=== PATIENT | male | born 1960 | race Caucasian/White ===

== ENCOUNTER 2017-07-04 16:37 | Outpatient (CLI) | payer OTHER ==
--- NOTE | 2017-07-04 20:09 | MRI Report ---
EXAM: RIGHT KNEE MRI WITHOUT CONTRAST EXAM DATE: 07/04/2017 05:24 PM. CLINICAL HISTORY: Right knee medial collateral ligament sprain. COMPARISON: 05/26/2017 radiograph, MRI 09/27/2016. TECHNIQUE: Multiplanar, multisequence T1-weighted and fluid-sensitive sequences of the knee without c ontrast. Other: None. FINDINGS: Bones: Mild tricompartmental osteophytes are present. No fractures. No marrow edema. Articular Cartilage: The central patellar cartilage has partial thickness fissuring. The trochlear ca rtilage is mildly thinned with surface irregularity. Lateral compartment articular cartilage is intac t. There is mild thinning and surface irregularity of the medial compartment articular cartilage. Fin dings are similar to the prior examination. Medial Meniscus: The medial meniscus is intact. Lateral Meniscus: The posterior horn of the lateral meniscus has longitudinal tearing and some head counselor ior horizontal tearing, potentially worse than on the prior examination. Cruciate Ligaments: The anterior and posterior cruciate ligaments are intact. Collateral Ligaments: The medial collateral and lateral collateral ligamentous structures are intact. Tendons: The quadriceps, patellar, semimembranosus, and popliteus tendons are unremarkable. Musculature: No edema or fatty atrophy. Other: A mild effusion is present. No popliteal cyst. No loose bodies. The medial and lateral retina cula are intact. Prepatellar subcutaneous edema is seen. IMPRESSION: 1. Mild osteoarthritis. 2. Complex tear of the posterior horn of the lateral meniscus. 3. Mild knee effusion. [facility] MUSCULOSKELETAL RADIOLOGY SECTION Referring Provider Line: [phone] SITE ID: [id number]
== END 2017-07-04 16:38 | disposition home or self-care (01) ==
LOC: DI 16:37
PROVIDERS: ATTEND Physician Assistant Medical
DX: M17.11 Unilateral primary osteoarthritis, right knee (principal); S83.271A Complex tear of lateral meniscus, current injury, right knee, initial encounter; M25.461 Effusion, right knee

== ENCOUNTER 2017-11-04 13:55 | Outpatient (CLI) | payer OTHER ==
[2017-11-04 21:08] LABS: ALBUMIN 3.8 g/dL (3.2-5.5); BILIRUBIN,DIRECT 0.3 mg/dL (0.1-0.5); BILIRUBIN,TOTAL 0.6 mg/dL (0.2-1.0); TOTAL PROTEIN 7.6 g/dL (6.7-8.2)
== END 2017-11-04 13:56 | disposition home or self-care (01) ==
LOC: LAB.WCP 13:55
PROVIDERS: ATTEND Orthopaedic Surgery
DX: S83.231A Complex tear of medial meniscus, current injury, right knee, initial encounter (principal); Z96.652 Presence of left artificial knee joint
CPT/HCPCS: 36415; 80076

== ENCOUNTER 2018-10-20 11:29 | Outpatient (CLI) | payer OTHER ==
[2018-10-20 18:56] LABS: BASOPHILS % (AUTO) 0.7 %; EOSINOPHILS % (AUTO) 8.3 %; HGB - HEMOGLOBIN 14.8 g/dL (14.0-18.0); LYMPHOCYTES % (AUTO) 34.5 %; MEAN CORPUSCULAR HEMOGLOBIN 33.6 pg (27.0-31.0); MEAN CORPUSCULAR HGB CONC 33.1 g/dL (32.0-36.0); MEAN CORPUSCULAR VOLUME 101.4 fL (80.0-94.0); MEAN PLATELET VOLUME 10.3 fL (7.4-11.4); MONOCYTES % (AUTO) 13.8 %; NEUTROPHILS % (AUTO) 42.7 %; PLT - PLATELET COUNT 111 10^3/uL (130-450); RED CELL DISTRIBUTION WIDTH 15.2 % (12.0-15.0); WHITE BLOOD COUNT 5.4 x10^3/uL (4.8-10.8)
[2018-10-20 19:02] LABS: ABNORMAL LYMPHS % (MANUAL) 0 %
[2018-10-20 19:31] LABS: BAND NEUTROPHILS % (MANUAL) 6 %; EOSINOPHILS # (MANUAL) 0.8 10^3/uL (0-0.7); LYMPHOCYTES # (MANUAL) 1.6 10^3/uL (1.5-3.5); LYMPHOCYTES % (MANUAL) 29 %; MONOCYTES # (MANUAL) 0.6 10^3/uL (0.0-1.0); NEUTROPHILS # (MANUAL) 2.5 10^3/uL (1.5-6.6); NEUTROPHILS % (MANUAL) 40 %
[2018-10-20 19:32] LABS: DIFFERENTIAL COMMENT MANUAL DIFFERENTIAL; PLATELET ESTIMATE, MANUAL DECREASED (<130,000) (NORMAL); PLATELET MORPHOLOGY NORMAL APPEARANCE (NORMAL)
[2018-10-20 19:42] LABS: ALBUMIN 3.2 g/dL (3.2-5.5); ALBUMIN/GLOBULIN RATIO 0.7 (1.0-2.2); ALKALINE PHOSPHATASE 263 IU/L (42-121); ALT ALANINE AMINOTRANSFERASE 142 IU/L (10-60); AST ASPARTATE AMINOTRANSFERASE 233 IU/L (10-42); BILIRUBIN,TOTAL 2.5 mg/dL (0.2-1.0); BUN - BLOOD UREA NITROGEN 9 mg/dL (6-20); CALCIUM 8.8 mg/dL (8.5-10.3); CARBON DIOXIDE - CO2 29 mmol/L (21-32); CHLORIDE 100 mmol/L (101-111); CHOL/HDL RATIO 4.1 (<5.0); CHOLESTEROL 107 mg/dL; CREATININE 0.6 mg/dL (0.6-1.2); GFR - MDRD 139 (>89); GLUCOSE 169 mg/dL (70-100); HDL CHOLESTEROL 26 mg/dL; LDL CHOLESTEROL,CALCULATED 63 mg/dL; LDL/HDL RATIO 2.4 (<3.6); SODIUM 135 mmol/L (135-145); TOTAL PROTEIN 7.5 g/dL (6.7-8.2); VLDL CHOLESTEROL 18 mg/dL
== END 2018-10-20 23:59 | disposition home or self-care (01) ==
LOC: LAB.WCP 11:29
PROVIDERS: ATTEND Physician Assistant Medical
DX: I10 Essential (primary) hypertension (principal); Z79.899 Other long term (current) drug therapy; Z12.5 Encounter for screening for malignant neoplasm of prostate
CPT/HCPCS: 36415; 80053; 80061; 83721; 84153; 85025

== ENCOUNTER 2018-10-23 14:29 | Outpatient (CLI) | payer OTHER | END 2018-10-23 23:59 | disposition home or self-care (01) | LOC: LAB.R 14:29 | PROVIDERS: ATTEND Physician Assistant Medical | DX: Z53.9 Procedure and treatment not carried out, unspecified reason (principal) | CPT/HCPCS: 83036 ==

== ENCOUNTER 2018-11-08 09:18 | Outpatient (CLI) | payer MEDICARE ==
--- NOTE | 2018-11-08 14:11 | Ultrasound Report ---
Reason: HEPATITIS C Procedure Date: 11/08/2018 Accession Number: [id number] / [id number] Procedure: US - Abdomen Limited CPT Code: FULL RESULT: EXAM: ABDOMEN ULTRASOUND LIMITED, RUQ EXAM DATE: 11/08/2018 10:34 AM. CLINICAL HISTORY: Hepatitis C. COMPARISON: None. TECHNIQUE: Real-time scanning was performed with static images obtained. FINDINGS: Liver: Normal in size with mildly coarsened but otherwise preserved echotexture. Right lobe of the liver measures at least 18.5 cm. Main portal vein flow: Hepatopetal. Gallbladder: Cholelithiasis is noted, stones are mobile and there is no wall thickening, pericholecystic fluid or detectable sonographic Montilla's sign. Biliary System: CBD measures 4 mm. No intrahepatic or extrahepatic ductal dilatation. Other: Right kidney measures 12 cm in maximal sagittal dimension and demonstrates no gross calculi, mass or hydronephrosis. IMPRESSION: Cholelithiasis without cholecystitis. [facility]
== END 2018-11-08 09:19 | disposition home or self-care (01) ==
LOC: DI 09:18
PROVIDERS: ATTEND Physician Assistant Medical
DX: K80.20 Calculus of gallbladder without cholecystitis without obstruction (principal); B19.20 Unspecified viral hepatitis C without hepatic coma
CPT/HCPCS: 76705

== ENCOUNTER 2019-03-09 15:11 | Outpatient (CLI) | payer MEDICARE ==
[2019-03-09 15:30] LABS: BASOPHILS # (AUTO) 0.1 10^3/uL (0.0-0.1); BASOPHILS % (AUTO) 1.1 %; EOSINOPHILS # (AUTO) 0.4 10^3/uL (0.0-0.7); HGB - HEMOGLOBIN 13.9 g/dL (14.0-18.0); LYMPHOCYTES # (AUTO) 1.6 10^3/uL (1.5-3.5); LYMPHOCYTES % (AUTO) 27.2 %; MEAN CORPUSCULAR HEMOGLOBIN 33.7 pg (27.0-31.0); MEAN CORPUSCULAR HGB CONC 34.3 g/dL (32.0-36.0); MEAN CORPUSCULAR VOLUME 98.3 fL (80.0-94.0); MEAN PLATELET VOLUME 8.8 fL (7.4-11.4); MONOCYTES # (AUTO) 0.7 10^3/uL (0.0-1.0); MONOCYTES % (AUTO) 11.1 %; NEUTROPHILS # (AUTO) 3.2 10^3/uL (1.5-6.6); NEUTROPHILS % (AUTO) 53.6 %; PLT - PLATELET COUNT 103 10^3/uL (130-450); RED BLOOD COUNT 4.13 10^6/uL (4.70-6.10); RED CELL DISTRIBUTION WIDTH 14.5 % (12.0-15.0)
[2019-03-09 15:40] LABS: ALBUMIN 3.3 g/dL (3.2-5.5); ALBUMIN/GLOBULIN RATIO 0.8 (1.0-2.2); BILIRUBIN,TOTAL 1.8 mg/dL (0.2-1.0); CALCIUM 8.6 mg/dL (8.5-10.3); CREATININE 0.7 mg/dL (0.6-1.2); TOTAL PROTEIN 7.7 g/dL (6.7-8.2)
[2019-03-13 15:47] LABS: HCV RNA QNT <1.18 NOT DETECTED Log IU/mL (NOT DETECTED); HCV RNA QUANT RT PCR <15 NOT DETECTED IU/mL (NOT DETECTED)
== END 2019-03-09 15:12 | disposition home or self-care (01) ==
LOC: LAB 15:11
PROVIDERS: ATTEND Internal Medicine Gastroenterology
DX: B18.2 Chronic viral hepatitis C (principal)
CPT/HCPCS: 36415; 80053; 81599; 85025; 87522

== ENCOUNTER 2019-03-19 09:00 | Outpatient (CLI) | payer MEDICARE ==
--- NOTE | 2019-03-19 09:28 | XRAY Report ---
Reason: SPRAIN OF OTHER LIGAMENT OF LEFT ANKLE,INITIAL ENC Procedure Date: 03/19/2019 Accession Number: [id number] / [id number] Procedure: WCP - Ankle 3 View LT CPT Code: FULL RESULT: EXAM: LEFT ANKLE RADIOGRAPHY EXAM DATE: 03/19/2019 09:14 AM. CLINICAL HISTORY: SPRAIN OF OTHER LIGAMENT OF LEFT ANKLE, INITIAL ENCOUNTER. COMPARISON: None. TECHNIQUE: 3 views. FINDINGS: Bones: No acute fracture. Tiny calcaneal bone spur. Joints: Normal. No effusion. No subluxations. The ankle mortise is normally aligned. Soft Tissues: Marked generalized soft tissue swelling. IMPRESSION: Negative for fracture. [facility]
== END 2019-03-19 09:01 | disposition home or self-care (01) ==
LOC: DI.WCP 09:00
PROVIDERS: ATTEND Physician Assistant Medical
DX: S93.492A Sprain of other ligament of left ankle, initial encounter (principal)

== ENCOUNTER 2019-07-14 17:34 | Outpatient (CLI) | payer MEDICARE | END 2019-07-14 17:35 | disposition critical access hospital (66) | LOC: EMS 17:34 | PROVIDERS: ATTEND Surgery | DX: R55 Syncope and collapse (principal); R61 Generalized hyperhidrosis | CPT/HCPCS: A0425; A0429 ==

== ENCOUNTER 2019-07-14 17:50 | Emergency (ER) | payer MEDICARE ==
[2019-07-14 18:21] LABS: BASOPHILS # (AUTO) 0.1 10^3/uL (0.0-0.1); BASOPHILS % (AUTO) 1.4 %; EOSINOPHILS # (AUTO) 1.3 10^3/uL (0.0-0.7); EOSINOPHILS % (AUTO) 13.7 %; HGB - HEMOGLOBIN 13.2 g/dL (14.0-18.0); LYMPHOCYTES % (AUTO) 21.3 %; MEAN CORPUSCULAR HEMOGLOBIN 33.8 pg (27.0-31.0); MEAN CORPUSCULAR HGB CONC 33.8 g/dL (32.0-36.0); MEAN CORPUSCULAR VOLUME 99.7 fL (80.0-94.0); MEAN PLATELET VOLUME 10.2 fL (7.4-11.4); MONOCYTES % (AUTO) 10.4 %; NEUTROPHILS # (AUTO) 4.8 10^3/uL (1.5-6.6); NEUTROPHILS % (AUTO) 51.4 %; PLT - PLATELET COUNT 130 10^3/uL (130-450); RED BLOOD COUNT 3.91 10^6/uL (4.70-6.10); RED CELL DISTRIBUTION WIDTH 14.7 % (12.0-15.0); WHITE BLOOD COUNT 9.4 x10^3/uL (4.8-10.8)
[2019-07-14 18:33] LABS: ALBUMIN 3.7 g/dL (3.2-5.5); ALBUMIN/GLOBULIN RATIO 0.9 (1.0-2.2); BILIRUBIN,TOTAL 1.5 mg/dL (0.2-1.0); CALCIUM 8.9 mg/dL (8.5-10.3); CREATININE 0.9 mg/dL (0.6-1.2); TOTAL PROTEIN 7.8 g/dL (6.7-8.2)
--- NOTE | 2019-07-14 18:43 | ED Physician Documentation ---
History of Present Illness - Stated complaint Stated Complaint: ALOC - Chief complaint Chief Complaint: Neuro - Additonal information Additional information: This is a 59-year-old male with a history of hypertension, hyperlipidemia, treated Hep C and well-controlled type 2 diabetes, who presents after an episode of syncope. Patient drove over to visit his friends at their house this evening. He remembers using his cell phone While waiting in the driveway, and then he woke up with his friend next to him. His friends, who are present at bedside, state that they came out to see him in the driveway and they found him drooling and unresponsive in his car. When they shook him they were able to wake him up after a few seconds, they state that he was sweating profusely. He denied any chest pain, shortness of breath, and after awakening he felt fine. He states this has never happened before. He denies any drug use, no alcohol use today. No fever. He was feeling well prior to this event. Review of Systems Constitutional: denies: Fever Eyes: denies: Loss of vision Nose: denies: Rhinorrhea / runny nose Cardiac: denies: Chest pain / pressure Respiratory: denies: Dyspnea GI: denies: Abdominal Pain : denies: Dysuria Skin: denies: Rash Neurologic: reports: Syncope Psychiatric: denies: Depressed Immunocompromised: denies: Immunocompromised PD PAST MEDICAL HISTORY - Past Medical History Cardiovascular: Hypertension Endocrine/Autoimmune: Type 2 diabetes Psych: Depression, Anxiety Musculoskeletal: Chronic back pain - Past Surgical History Ortho: Knee replacement - Present Medications Home Medications: Ambulatory Orders Medication Instructions Recorded Confirmed Brexpiprazole [Rexulti] 2 mg PO QPM 11/21/18 12/13/18 Cyclobenzaprine [Flexeril] 10 mg PO TID PRN 11/21/18 12/13/18 Doxepin [SINEquan] 75 - 100 mg PO QPM 11/21/18 12/13/18 Duloxetine HCl [Cymbalta] 60 mg PO DAILY 11/21/18 12/13/18 Lisinopril 20 mg PO DAILY 11/21/18 12/13/18 Meloxicam 7.5 mg PO BID 11/21/18 12/13/18 Metoprolol Tartrate 150 mg PO QPM 11/21/18 12/13/18 Mirtazapine [Remeron] 45 mg PO HS 11/21/18 12/13/18 [place]-3S/Dha/Epa/Fish Oil [Fish 2 tab PO DAILY 11/21/18 12/13/18 Oil 1,200 mg Softgel] Tumeric 2,000 mg PO DAILY 11/21/18 12/13/18 hydrOXYzine HCl [Hydroxyzine HCl] 50 - 100 mg PO TID PRN 11/21/18 12/13/18 metFORMIN [Glucophage] 500 mg PO BIDWM 11/21/18 12/13/18 Hydrochlorothiazide 12.5 mg PO 07/14/19 07/14/19 Ledipasvir/Sofosbuvir [Harvoni 1 each PO 07/14/19 90-400 mg Tablet] Methadone 5 mg PO 07/14/19 07/14/19 - Allergies Allergies/Adverse Reactions: Allergies Allergy/AdvReac Type Severity Reaction Status Date / Time No Known Drug Allergies Allergy Verified 07/14/19 18:06 - Living Situation Living Arrangement: reports: At home - Social History Does the pt smoke?: Yes Smoking Status: Current every day smoker Does the pt drink ETOH?: No Does the pt have substance abuse?: No - Immunizations Immunizations are current?: Yes - POLST Patient has POLST: No PD ED PE NORMAL - Vitals Vital signs reviewed: Yes - General General: Alert and oriented X 3, No acute distress - HEENT HEENT: PERRL - Neck Neck: Supple, no meningeal sign - Cardiac Cardiac: RRR, No murmur - Respiratory Respiratory: Clear bilaterally - Abdomen Abdomen: Soft, Non tender, Non distended - Derm Derm: Warm and dry - Extremities Extremities: No deformity - Neuro Neuro: Alert and oriented X 3, shaper hand 2-12 intact, No motor deficit, No sensory deficit, Normal speech - Psych Psych: Normal mood, Normal affect Results - Vitals Vitals: Vital Signs - 24 hr 07/14/19 07/14/19 07/14/19 18:04 18:06 20:13 Temperature 36.7 C 36.6 C Heart Rate 76 65 57 L Respiratory 20 14 Rate Blood Pressure 156/85 H 144/74 H O2 Saturation 95 92 07/14/19 21:54 Temperature Heart Rate 58 L Respiratory 15 Rate Blood Pressure 164/80 H O2 Saturation 97 Oxygen O2 Source Room air - EKG (time done) 18:10 Other comments: Other comments (Rate 68, rhythm sinus, left axis deviation. LVH by voltage criteria.QTC read as prolonged at 517 by the computer, on my calculation it is 468 - 480 .) - Labs Labs: Laboratory Tests 07/14/19 07/14/19 07/14/19 18:15 18:15 18:15 WBC 9.4 RBC 3.91 L Hgb 13.2 L Hct 39.0 L MCV 99.7 H MCH 33.8 H MCHC 33.8 RDW 14.7 Plt Count 130 MPV 10.2 Neut # (Auto) 4.8 Lymph # (Auto) 2.0 [place] # (Auto) 1.0 Eos # (Auto) 1.3 H Baso # (Auto) 0.1 Absolute Nucleated RBC 0.00 Band Neuts % (Manual) Not Reportable Abnorm Lymph % (Manual) Not Reportable Nucleated RBC % 0.0 Neutrophils # (Manual) Not Reportable Lymphocytes # (Manual) Not Reportable Monocytes # (Manual) Not Reportable Eosinophils # (Manual) Not Reportable Basophils # (Manual) Not Reportable Differential Comment MANUAL=AUTO DIFF Manual Slide Review Indicated Platelet Estimate NORMAL (130-450,000) Platelet Morphology NORMAL APPEARANCE RBC Morph Micro Appear 1+ ANISOCYTOSIS Sodium 141 Potassium 3.3 L Chloride 104 Carbon Dioxide 28 Anion Gap 9.0 BUN 7 Creatinine 0.9 Estimated GFR (MDRD) 87 L Glucose 110 H POC Whole Bld Glucose Calcium 8.9 Total Bilirubin 1.5 H AST 40 ALT 25 Alkaline Phosphatase 176 H Troponin I High Sens 7.4 B-Natriuretic Peptide Total Protein 7.8 Albumin 3.7 Globulin 4.1 Albumin/Globulin Ratio 0.9 L Lipase 59 H 07/14/19 07/14/19 18:15 18:18 WBC RBC Hgb Hct MCV MCH MCHC RDW Plt Count MPV Neut # (Auto) Lymph # (Auto) [place] # (Auto) Eos # (Auto) Baso # (Auto) Absolute Nucleated RBC Band Neuts % (Manual) Abnorm Lymph % (Manual) Nucleated RBC % Neutrophils # (Manual) Lymphocytes # (Manual) Monocytes # (Manual) Eosinophils # (Manual) Basophils # (Manual) Differential Comment Manual Slide Review Platelet Estimate Platelet Morphology RBC Morph Micro Appear Sodium Potassium Chloride Carbon Dioxide Anion Gap BUN Creatinine Estimated GFR (MDRD) Glucose POC Whole Bld Glucose 120 H Calcium Total Bilirubin AST ALT Alkaline Phosphatase Troponin I High Sens B-Natriuretic Peptide 98 Total Protein Albumin Globulin Albumin/Globulin Ratio Lipase - Rads (name of study) CXR Radiology: Other (Mild interstitial thickening suggestive of reactive airway disease, otherwise unremarkable) PD MEDICAL DECISION MAKING - ED course Complexity details: considered differential (Dysrhythmia, ACS, drug use, dehydration, electrolyte abnormality, seizure, vasovagal episode) ED course: On my examination patient is well-appearing, is hypertensive, vital signs otherwise unremarkable. He is asymptomatic at this time and has a normal neurologic exam. His EKG shows some signs of left ventricular hypertrophy. The computer read of his EKG is prolonged QTC at 517, my calculation the QTC is 468. CBC shows a mild anemia of 10.2, unlikely to be the cause of his symptoms, othe rwise CBC is unremarkable. CMP shows a mild hypokalemia 3.3, and his alkaline phosphatase is slightly elevated at 176, otherwise his chemistry panel is unrevealing. Troponin is negative. BNP normal. He does not take insulin and was not hypoglycemic. Chest x-ray shows some mild interstitial thickening, no consolidation or other acute cardiopulmonary abnormality. On repeat evaluation patient continues to feel well and is eager to go home. I discussed with him that based on our work-up so far I do not have an obvious cause for his episode of syncope with diaphoresis. Cardiac dysrhythmia is p ossible, he is on mulitple QT prolonging drugs, and I explained to him that I recommend we admit and observe him for signs of dysrhythmia. This would also allow us to perform serial troponins. Patient declines admission and would like to go home. He understands the risk of doing so, including missed diagnosis, potentially leading to serious harm or . He also understands my concern for potential dysrhythmia or other cardiac problem. I discussed that he should follow closely with his primary care provider and/or Farm Mechanic. I also discussed that if he has any recurrent or new symptoms he needs to return to the emergency department. He agrees with this plan. I also discussed low, slow, and dry precautions including no driving cars or climbing at heights. Although patient is feeling quite well, he agrees to at least be watched at his friend's house tonight, since he otherwise lives alone. He was discharged home in their care. Departure - Departure Disposition: 01 Home, Self Care Clinical Impression: Syncope Qualifiers: Syncope type: unspecified Qualified Code(s): R55 - Syncope and collapse Condition: Stable Instructions: ED Fainting Unkn Cause Follow-Up: Your,PCP [Other] - Within 3 Days (Make an appointment as soon as possible for follow-up on your EKG changes and your episode of passing out.) Comments: You were seen today because you were found unconscious, we do not know the cause of this. Your EKG did show some likely enlargement of your heart, and should follow-up closely with your primary care provider or scrap preparation supervisor on this. Abnormal rhythms of your heart can cause episodes like the one you had today, and I would've liked for you to be observed overnight in the hospital. If you develop any chest pain, shortness of breath, feeling of your heart racing and flip-flopping, or more episodes of passing out, return to the emergency department. Do not drive, climb at heights, do anything that could be dangerous if you pass out. Discharge Date/Time: 07/14/19 22:10
[2019-07-14 18:44] LABS: RBC MORPHOLOGY (MULTIPLE) 1+ ANISOCYTOSIS (NORMAL)
[2019-07-14 18:45] LABS: DIFFERENTIAL COMMENT MANUAL=AUTO DIFF; PLATELET ESTIMATE, MANUAL NORMAL (130-450,000) (NORMAL); PLATELET MORPHOLOGY NORMAL APPEARANCE (NORMAL)
--- NOTE | 2019-07-14 20:28 | XRAY Report ---
Reason: cough Procedure Date: 07/14/2019 Accession Number: [id number] / [id number] Procedure: XR - Chest 2 View X-Ray CPT Code: 52223 FULL RESULT: EXAM: CHEST RADIOGRAPHY EXAM DATE: 07/14/2019 08:09 PM. CLINICAL HISTORY: Cough. COMPARISON: None. TECHNIQUE: 2 views. FINDINGS: Lungs/Pleura: Mild bilateral interstitial thickening. No consolidation. No pleural effusion or pneumothorax. Mediastinum: Heart size within normal limits. Mildly tortuous and ectatic aorta. Other: None. IMPRESSION: Mild bilateral interstitial thickening may be related to viral illness and/or reactive airways disease. [facility]
[2019-07-14 21:54] VITALS: BP 164/80
== END 2019-07-14 22:10 | disposition home or self-care (01) ==
LOC: ED 17:50
DX: R55 Syncope and collapse (principal); R74.8 Abnormal levels of other serum enzymes; E87.6 Hypokalemia; D64.9 Anemia, unspecified; I11.9 Hypertensive heart disease without heart failure; E78.5 Hyperlipidemia, unspecified; E11.9 Type 2 diabetes mellitus without complications; Z79.84 Long term (current) use of oral hypoglycemic drugs; F17.200 Nicotine dependence, unspecified, uncomplicated
CPT/HCPCS: 36415; 71046; 80053; 83690; 83880; 84484; 85025; 93005; 99283; 99284

== ENCOUNTER 2020-04-14 15:19 | Outpatient (CLI) | payer OTHER, MEDICARE ==
--- NOTE | 2020-04-14 16:56 | MRI Report ---
PROCEDURE: Ankle LT W/O INDICATIONS: LT ANKLE SPRAIN, FOOT PAIN TECHNIQUE: Noncontrast sagittal T1 spin echo and T2 fast spin echo with fat saturation, axial proton density fas t spin echo and T2 fast spin echo with fat saturation, coronal T1 spin echo and T2 fast spin echo wit h fat saturation through the ankle/hindfoot. COMPARISON: None. FINDINGS: Image quality: Excellent. Bones and joints: No bone marrow contusions or fractures. There is mild degenerative marrow edema in volving the posterolateral aspect of the talus, consistent with degenerative marrow edema. No hindfoo t coalitions. No osteochondral injuries of the talar dome. No pathologic joint effusions. Medial structures: There is a small focus of high T2 signal intensity within the tibialis posterior tendon just proximal to the medial malleolus and at the level of the medial malleolus, indicating a l ow-grade partial-thickness tear. The flexor digitorum longus, and flexor hallucis longus tendons are intact. The posterior tibial neurovascular bundle appears normal within the tarsal tunnel, without e xtrinsic mass effect. The deep layer (anterior and posterior tibiotalar ligaments) and superficial l amor (tibionavicular, tibiospring, and tibiocalcaneal ligaments) of the deltoid ligament appear tracy l. The spring ligament components (superomedial calcaneonavicular, medioplantar oblique calcaneonavi cular, and inferoplantar longitudinal ligaments) are intact. Lateral structures: The anterior talofibular, calcaneofibular, and posterior talofibular ligaments a ppear intact. More superiorly, the anterior and posterior tibiofibular ligaments appear normal, as i s the intermalleolar ligament. The tibiofibular syndesmosis is normal in width at 2 mm or less. The peroneus longus and brevis tendons demonstrate normal location and morphology. Adjacent bony perone al tubercle and retrotrochlear prominence are normal in size. The sinus tarsi demonstrates normal fa tty signal, without edema, fibrosis, or cyst formation. Visualized sinus tarsi components (cervical ligament, interosseous talocalcaneal ligament, roots of the inferior extensor retinaculum) appear nor mal. Anterior structures: The tibialis anterior, extensor hallucis longus, and extensor digitorum longus tendons appear intact. Posterior and plantar structures: Achilles tendon is intact. Medial and lateral bands of the planta r fascia are of normal thickness. No abductor digiti quinti muscle atrophy to suggest Larry neuropa thy. IMPRESSION: 1. Low-grade partial thickness tear of the tibialis posterior tendon. 2. Degenerative marrow edema within the lateral talus. Reviewed by: Sean Villar MD on 04/14/2020 4:55 PM PDT Approved by: Sean Villar MD on 04/14/2020 4:55 PM PDT Station ID: [id number]
== END 2020-04-14 15:20 | disposition home or self-care (01) ==
LOC: DI 15:19
PROVIDERS: ATTEND Orthopaedic Surgery
DX: S93.492A Sprain of other ligament of left ankle, initial encounter (principal); M79.672 Pain in left foot

== ENCOUNTER 2021-05-10 19:07 | Outpatient (CLI) | payer OTHER, MEDICARE | END 2021-05-10 19:08 | disposition short-term general hospital (02) | LOC: EMS 19:07 | DX: Z04.1 Encounter for examination and observation following transport accident (principal); R41.0 Disorientation, unspecified | CPT/HCPCS: A0425; A0429 ==

== ENCOUNTER 2022-02-02 08:51 | Outpatient (CLI) | payer MEDICARE ==
--- NOTE | 2022-02-02 16:45 | Ultrasound Report ---
PROCEDURE: Abdomen Complete INDICATIONS: Chronic hepatitis TECHNIQUE: Real-time scanning was performed of the abdominal and retroperitoneal organs, with image documentatio n. COMPARISON: None. FINDINGS: Liver: Enlarged liver measuring 20 cm in maximum transverse dimension. Coarsened hepatic parenchymal echotexture with increased hepatic parenchymal echogenicity. Although not entirely definitive there i s a subtle suggestion of contour nodularity in the liver. No liver mass identified. Gallbladder: Multiple mobile gallstones. No findings of cholecystitis. Biliary ducts: Nondilated Pancreas: Visualized portions of the pancreas are sonographically normal. Spleen: Spleen is normal in size and homogeneous in echotexture. Kidneys: Normal size and appearance. Aorta: Visualized aorta is normal in caliber at less than 3 cm. Iliacs: Proximal common iliac arteries are normal in caliber at less than 2.5 cm. IVC: Intrahepatic inferior vena cava is patent. Miscellaneous: No free abdominal fluid. IMPRESSION: Coarsened hepatic parenchymal echotexture and increased hepatic parenchymal echogenicity are consiste nt with chronic hepatitis. There is subtle suggestion of nodularity at the liver surface which raises concern for developing cir rhotic change. Reviewed by: Khris Boyd MD on 02/02/2022 4:44 PM PDT Approved by: Khris Boyd MD on 02/02/2022 4:44 PM PDT Station ID: [id number]
== END 2022-02-02 08:52 | disposition home or self-care (01) ==
LOC: DI 08:51
PROVIDERS: ATTEND Internal Medicine Gastroenterology
DX: B18.2 Chronic viral hepatitis C (principal); R93.2 Abnormal findings on diagnostic imaging of liver and biliary tract

== ENCOUNTER 2022-07-30 09:46 | Outpatient (CLI) | payer MEDICARE ==
--- NOTE | 2022-07-30 13:38 | Ultrasound Report ---
PROCEDURE: Abdomen Limited, ultrasound INDICATIONS: CIRRHOSIS OF LIVER TECHNIQUE: Real-time focused scanning was performed of the abdomen, with image documentation. COMPARISON: 02/02/2022 FINDINGS: Liver: Hepatic echotexture is heterogenous consistent with given history of cirrhosis. Suggestion of scalloping of the hepatic capsule. Portal vein is patent and hepatopedal Gallbladder: Cholelithiasis. No gallbladder wall upper limits of normal at 3.1 mm. No pericholecysti c fluid Common Bile Duct: 6 mm. Pancreas: Unremarkable as visualized. Right Kidney: Appropriate in size and echotexture. No evidence of hydronephrosis. No shadowing calc yaa. No solid or cystic mass lesion. IMPRESSION: 1. Hepatic cirrhosis without focal mass lesion. Normal portal vein. 2. Cholelithiasis. Reviewed by: Stef Castorena MD on 07/30/2022 12:37 PM [facility] Approved by: Stef Castorena MD on 07/30/2022 12:37 PM [facility] Station ID: [id number]
== END 2022-07-30 09:47 | disposition home or self-care (01) ==
LOC: DI 09:46
PROVIDERS: ATTEND Internal Medicine Gastroenterology
DX: K74.60 Unspecified cirrhosis of liver (principal); B18.2 Chronic viral hepatitis C; K80.20 Calculus of gallbladder without cholecystitis without obstruction